=== PATIENT | male | born 1990 | race African-American/Black ===

== ENCOUNTER 2021-08-22 13:55 | Emergency (ER) | payer MEDICAID ==
[~2021-08-22] VITALS: Ht 182.9 cm; Wt 78.0 kg
[2021-08-22] MEDS ORDERED: KETOROLAC 60MG/2ML VIAL IM ONE (15:00)
[2021-08-22] MEDS ORDERED: ACETAMINOPHEN 325MG TABLET PO ONE (15:00)
[2021-08-22] MEDS ORDERED: ETOMIDATE 2MG/ML 10ML VIAL IV ONE (16:45)
[2021-08-22] MEDS ORDERED: KETAMINE HCL 50 MG/ML 10ML IV ONE (18:00)
[2021-08-22] MEDS ORDERED: IBUP-2028 MT (18:46)
[2021-08-22] MEDS ORDERED: TOPUD PO (18:46)
[2021-08-22 20:27] VITALS: BP 138/69
== END 2021-08-22 20:30 | disposition home or self-care (01) ==
LOC: ER 13:55
DX: S53.124A Posterior dislocation of right ulnohumeral joint, initial encounter (principal); V00.131A Fall from skateboard, initial encounter; Y93.51 Activity, roller skating (inline) and skateboarding; Y92.488 Other paved roadways as the place of occurrence of the external cause
CPT/HCPCS: 24600; 73060; 73080; 73090; 96372; 99152; 99285; J1885; J3490